=== PATIENT | female | born 1960 | race Caucasian/White ===

== ENCOUNTER → 2022-05-13 | Outpatient (CLI) | payer MEDICARE, OTHER ==
--- NOTE | 2022-05-13 16:22 | XR ---
EXAMINATION TYPE: XR hand complete bilateral DATE OF EXAM: 05/13/2022 COMPARISON: None HISTORY: Chronic pain TECHNIQUE: Three-view bilateral hands each FINDINGS: No acute fractures are evident. Joint spaces are preserved. There is some mild subluxation of the carpal metacarpal junction of the right hand compatible with degenerative change. Slightly mor e moderate degenerative change of the first carpometacarpal junction left hand is present. Follow up exams can be performed 7-10 days of acute trauma for continued pain. IMPRESSION: 1. 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
--- NOTE | 2022-05-13 16:23 | XR ---
EXAMINATION TYPE: XR foot complete LT DATE OF EXAM: 05/13/2022 COMPARISON: None HISTORY: Chronic pain TECHNIQUE: 3 view left foot FINDINGS: No acute fracture or dislocation is evident. Joint spaces are preserved. Soft tissues appea r normal. Follow up exams can be performed 7-10 days of acute trauma for continued pain IMPRESSION: 1. No acute osseous abnormality left foot.
--- NOTE | 2022-05-13 16:26 | XR ---
EXAMINATION TYPE: XR ankle complete LT DATE OF EXAM: 05/13/2022 COMPARISON: None HISTORY: Pain TECHNIQUE: 3 view left ankle FINDINGS: No acute fracture or dislocation is evident. Soft tissues appear normal. Ankle mortise is i ntact. Follow-up exam in 7-10 days from acute trauma for continued pain IMPRESSION: 1. No acute osseous abnormality left ankle
== END | disposition home or self-care (01) ==
LOC: RADXRYALE 15:23
PROVIDERS: ATTEND Physician Assistant
DX: M18.0 Bilateral primary osteoarthritis of first carpometacarpal joints (principal); M25.572 Pain in left ankle and joints of left foot; M79.672 Pain in left foot